=== PATIENT | male | born 1955 | race Caucasian/White ===

== ENCOUNTER 2016-07-03 14:58 | Emergency (ER) | payer OTHER ==
--- NOTE | 2016-07-03 17:39 | ED ---
Kee Helms Karl, scribed for Jos Salguero MD on 07/03/16 at 1713 . Complex/Multi-Sys Presentation - HPI Summary HPI Summary: 61 y/o M CORY presents w/ c/o a positive TB test. Pt reported no cough, night sweats, fever, or chills. Pt has been TB positive since 1969. - History Of Current Complaint Chief Complaint: EDGeneral Time Seen by Provider: 07/03/16 17:00 Hx Obtained From: Patient Onset/Duration: Gradual Onset, Still Present Timing: Constant Severity Currently: None Associated Signs And Symptoms: Negative: Cough, Fever, Diaphoresis - Allergies/Home Medications Allergies/Adverse Reactions: Allergies Allergy/AdvReac Type Severity Reaction Status Date / Time No Known Allergies Allergy Verified 02/25/13 18:07 PMH/Surg Hx/FS Hx/Imm Hx Psychiatric History: Reports: Hx of Violent Episodes Against Others Denies: Hx Eating Disorder Infectious Disease History: No Infectious Disease History: Denies: Traveled Outside the [place] in Last 30 Days - Family History Known Family History: Positive: Unknown - pt was adopted Family History: Pt was adopted - Social History Alcohol Use: Daily Substance Use Type: Reports: Heroin, Marijuana Smoking Status (MU): Heavy Every Day Tobacco Smoker Review of Systems Negative: Fever, Chills, Skin Diaphoresis Eyes: Negative ENT: Negative Cardiovascular: Negative Negative: Cough Gastrointestinal: Negative Genitourinary: Negative Musculoskeletal: Negative Skin: Negative Neurological: Negative Psychological: Normal All Other Systems Reviewed And Are Negative: Yes Physical Exam - Summary Physical Exam Summary: VITAL SIGNS: Reviewed. GENERAL: Patient is a well developed and nourished male who is lying comfortable in the stretcher. Patient is not in any acute respiratory distress. HEAD AND FACE: No signs of trauma. No ecchymosis, hematomas or skull depressions. No sinus tenderness. EYES: PERRLA, EOMI x 2, No injected conjunctiva, no nystagmus. EARS: Hearing grossly intact. Ear canals and tympanic membranes are within normal limits. MOUTH: Oropharynx within normal limits. NECK: Supple, trachea is midline, no adenopathy, no JVD, no carotid bruit, no c- spine tenderness, neck with full ROM. CHEST: Symmetric, no tenderness at palpation LUNGS: Clear to auscultation bilaterally. No wheezing or crackles. CVS: Regular rate and rhythm, S1 and S2 present, no murmurs or gallops appreciated. ABDOMEN: Soft, non-tender. No signs of distention. No rebound no guarding, and no masses palpated. Bowel sounds are normal. EXTREMITIES: FROM in all major joints, no edema, no cyanosis or clubbing. NEURO: Alert and oriented x 3. No acute neurological deficits. Speech is normal and follows commands. SKIN: Dry and warm Triage Information Reviewed: Yes Vital Signs On Initial Exam: Initial Vitals Temp Pulse Resp BP Pulse Ox 99.3 F 75 17 139/86 99 07/03/16 15:02 07/03/16 15:02 07/03/16 15:02 07/03/16 15:02 07/03/16 15:02 Vital Signs Reviewed: Yes Diagnostics - Vital Signs Vital Signs Temp Pulse Resp BP Pulse Ox 07/03/16 16:04 97.4 F 72 17 120/73 98 07/03/16 15:02 99.3 F 75 17 139/86 99 - Laboratory Lab Statement: Any lab studies that have been ordered have been reviewed, and results considered in the medical decision making process. - Radiology CXR Xray Interpretation: No Acute Changes Radiology Interpretation Completed By: ED Physician Complex Multi-Symp Course/Dx Assessment/Plan: 61 y/o M BIBA presents w/ c/o a positive TB test. Pt reported no cough, night sweats, fever, or chills. Pt has been TB positive since 1969. Patient reports that he has had a positive Interferon-gamma release assays ( IGRAs) in the past. Patient also reports that he had a positive ppd test in 1969 when he was incarcerated. He reports an intentional weight loss, but denies any productive cough with tinge blood sputum, denies any night sweats and has no other complaints. CXR: No acute cardiopulmonary pathology. Since patient has Hx of positive PPD and IGRA with a negative CXR he will be discharged home with f/u of PMD. Patient reports he has never been treated with INH therefore, he was highly recommended to discussed the benefits and risk of taking INH with is PCP. I discussed all the findings and test results with the patient. Patient was instructed to return to the emergency room immediately if he develops any productive cough with blood, fever or night sweats. Plan of care was discussed with the patient and understands and agrees. All questions were answered at patient satisfaction. There were no further complaints or concerns. P/E: Lungs: CTA B/L. Good air exchange. No wheezing or crackles heard. CVS: S1 and S2 present. No murmurs appreciated. Patient is alert and oriented x 3. Patient is hemodynamically stable. Patient will be discharged home with follow up PMD in the next 2-3 days - Diagnoses Differential Diagnoses/HQI/PQRI: Other - TB, PNA Provider Diagnoses: False positive interferon-gamma release assay (IGRA) for tuberculosis Discharge - Discharge Plan Condition: Stable Disposition: HOME The documentation as recorded by the Kee lund Karl accurately reflects the service I personally performed and the decisions made by Jose M guan Walter, MD.
[2016-07-03 18:04] VITALS: BP 104/75
--- NOTE | 2016-07-03 18:20 | RAD ---
INDICATION: +PPD COMPARISON: None TECHNIQUE: PA and lateral views of the chest were obtained. FINDINGS: The heart and mediastinum are normal in size and contour. The lungs are grossly clear. There is no evidence of large pleural effusion. Degenerative changes of the thoracic spine include loss of intervertebral disc height and anterior marginal osteophyte formation. There is no radiographic evidence of free air beneath the diaphragm IMPRESSION: No radiographic evidence of acute cardiopulmonary disease.
== END 2016-07-03 18:02 | disposition home or self-care (01) ==
LOC: ED 14:58
DX: R76.11 Nonspecific reaction to tuberculin skin test without active tuberculosis (principal)
CPT/HCPCS: 71020; 99282

== ENCOUNTER 2016-07-13 11:06 | Emergency (ER) | payer OTHER ==
[2016-07-13] MEDS ORDERED: Ondansetron INJ* 2 MG/ML VIAL IV ONE (11:50)
[2016-07-13] MEDS ORDERED: NS 0.9% 1000 ML* 1,000 ML IV ONE (11:50)
[2016-07-13] MEDS ORDERED: Morphine INJ* 4 MG/ML 1 ML SYRINGE IV ONE (11:50)
[2016-07-13 12:30] LABS: Hematocrit 46 % (42-52); Hemoglobin 15.4 g/dl (14.0-18.0); Mean Corpuscular HGB Conc 33 g/dl (31-36); Mean Corpuscular Hemoglobin 33 pg (27-31); Mean Corpuscular Volume 98 fL (80-94); Mean Platelet Volume 11 um3 (7.4-10.4); Red Blood Count 4.72 10^6/ul (4.0-5.4); Red Cell Distribution Width 14 % (10.5-15); White Blood Count 10.5 10^3/ul (3.5-10.8)
[2016-07-13 12:53] LABS: ALT 101 U/L (7-52); Albumin 3.7 g/dL (3.2-5.2); Alkaline Phosphatase 44 U/L (34-104); Blood Urea Nitrogen 20 mg/dL (6-24); C Reactive Protein 5.28 mg/L (< 5.00); CO2 Carbon Dioxide 25 mmol/L (22-32); Calcium 9.5 mg/dL (8.6-10.3); Chloride 103 mmol/L (101-111); EGFR African American 126.8 (>60); EGFR Non-African American 98.6 (>60); Globulin 3.5 g/dL (2-4); Glucose 124 mg/dL (70-100); Lipase 32 U/L (11.0-82.0); Magnesium 1.7 mg/dL (1.9-2.7); Sodium 138 mmol/L (133-145); Total Protein 7.2 g/dL (6.4-8.9)
[2016-07-13 13:05] LABS: Urine Bacteria Absent (Absent); Urine Bilirubin Negative (Negative); Urine Glucose Negative (Negative); Urine Nitrite Negative (Negative)
[2016-07-13] MEDS ORDERED: Magnesium Sulfate 2 GM IV* 2 GM/50 ML BAG IVPB ONE (14:05)
[2016-07-13] MEDS ORDERED: Azithromycin TAB* 250 MG PO ONE (15:29)
[2016-07-13] MEDS ORDERED: Magnesium Oxide TAB* 400 MG PO ONE (15:38)
[2016-07-13 16:03] LABS: Call Hep C TO BE CALLED
[2016-07-13 16:09] VITALS: BP 112/68
--- NOTE | 2016-07-15 08:32 | PN ---
Progress Note - Progress Note Note: Patient is a resident at [facility]. The medical staff was notified of his positive Hep C result, and said they were aware of his status. No further action needed.
--- NOTE | 2016-07-17 08:16 | PN ---
Progress Note - Progress Note Note: Stool culture is negative for any organisms. Positive for occult blood but H/H was normal. Patient is following up with primary.
--- NOTE | 2016-08-09 11:01 | ED ---
Carlton Helms Adam, scribed for Maria E Mccoy MD on 07/13/16 at 1142 . GI/ HPI - HPI Summary HPI Summary: Pt is a 61 year old male presenting with N/V/D and abdominal pain. He states that he has been having "watery" diarrhea 6-8 times a day for the past 2 weeks. He denies any blood or black tarry stools. He also c/o abdominal cramping, heartburn, and some difficulty urinating. 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 He states that he was undergoing a standard eye test; he didn't have any drops put in and he doesn't think anything in particular triggered the emesis. Pt denies any recent abx, camping, or bad food. He has been taking Pepto-Bismol. Pt has been at [facility] for [facility] re[facility] for 5 weeks. He states that he was a "heavy" drinker. He smokes tobacco currently and is a former drug user. Pt denies any other known PMHx. FMHx unknown because pt was adopted. - History of Current Complaint Chief Complaint: EDAbdPain Stated Complaint: NAUSEA/VOMITTING Hx Obtained From: Patient Onset/Duration: Started Weeks Ago, Atraumatic, Still Present Timing: Constant, Lasting Weeks Severity: Moderate Current Severity: Moderate Pain Intensity: 6 Location of Pain: Diffuse Pain Characteristics: Cramping Associated Signs and Symptoms: Positive: Vomiting, Diarrhea, Dysuria, Abdominal Pain, Other: - Heartburn. Negative: Black Tarry Stool, Blood w/Stool Aggravating Factor(s): Nothing Alleviating Factor(s): Nothing - Allergy/Home Medications Allergies/Adverse Reactions: Allergies Allergy/AdvReac Type Severity Reaction Status Date / Time No Known Allergies Allergy Verified 02/25/13 18:07 PMH/Surg Hx/FS Hx/Imm Hx Respiratory History: Reports: Other Respiratory Problems/Disorders - POSSATIVE PPD SINCE 1982 Psychiatric History: Reports: Hx of Violent Episodes Against Others Denies: Hx Eating Disorder Infectious Disease History: Yes Infectious Disease History: Denies: Traveled Outside the [place] in Last 30 Days - Family History Known Family History: Positive: Unknown Family History: Pt was adopted - Social History Occupation: Unemployed Lives: Nursing Home - [facility] Alcohol Use: None Alcohol Amount: 5 weeks sober, resident of [facility] Hx Substance Use: Yes Substance Use Type: Reports: Marijuana Substance Use Comment - Amount & Last Used: resident [facility] Hx Tobacco Use: Yes Smoking Status (MU): Heavy Every Day Tobacco Smoker Review of Systems Negative: Fever Positive: Abdominal Pain, Vomiting, Diarrhea, Other - Heartburn Positive: dysuria All Other Systems Reviewed And Are Negative: Yes Physical Exam Triage Information Reviewed: Yes Vital Signs On Initial Exam: Initial Vitals Temp Pulse Resp BP Pulse Ox 98.7 F 71 18 121/73 94 07/13/16 11:18 07/13/16 11:18 07/13/16 11:18 07/13/16 11:18 07/13/16 11:18 Vital Signs Reviewed: Yes Appearance: Positive: Well-Appearing, No Pain Distress Skin: Positive: Warm, Skin Color Reflects Adequate Perfusion, Dry Eyes: Positive: EOMI, [place] ENT: Positive: Pharynx normal, TMs normal Neck: Positive: Supple, Nontender Respiratory/Lung Sounds: Positive: Clear to Auscultation, Breath Sounds Present. Negative: Rales, Rhonchi, Wheezes Cardiovascular: Positive: RRR. Negative: Murmur, Rub Abdomen Description: Positive: Nontender, Soft. Negative: Distended, Guarding Bowel Sounds: Positive: Present Musculoskeletal: Positive: Strength/ROM Intact. Negative: Edema Left, Edema Right Neurological: Positive: Sensory/Motor Intact, Alert, Oriented to Person Place, Time, CN Intact II-III Psychiatric: Positive: Affect/Mood Appropriate - Venkat Coma Scale Coma Scale Total: 15 Diagnostics - Vital Signs Vital Signs Temp Pulse Resp BP Pulse Ox 07/13/16 11:18 98.7 F 71 18 121/73 94 - Laboratory Result Diagrams: 07/13/16 12:15 07/13/16 14:04 Lab Statement: Any lab studies that have been ordered have been reviewed, and results considered in the medical decision making process. - EKG 11:47 Cardiac Rate: NL - 68 BPM EKG Rhythm: Sinus Rhythm - Normal EKG Interpretation: NSR with J point elevation. EKG Comparison: Other - No prior EKG's to compare GIGU Course/Dx - Diagnoses Provider Diagnoses: Dysentery Discharge - Discharge Plan Condition: Stable Disposition: HOME Patient Education Materials: Acute Diarrhea (ED) Referrals: Yoli Cruz MD [Primary Care Provider] - Additional Instructions: Follow up with Dr. Cruz in 2 days. The documentation as recorded by the irmaibCarlton davies Adam accurately reflects the service I personally performed and the decisions made by me, Maria E Mccoy MD.
== END 2016-07-13 16:44 | disposition home or self-care (01) ==
LOC: ED 11:06
DX: A09 Infectious gastroenteritis and colitis, unspecified (principal); R11.2 Nausea with vomiting, unspecified; R19.7 Diarrhea, unspecified; R10.9 Unspecified abdominal pain; R30.0 Dysuria; F17.210 Nicotine dependence, cigarettes, uncomplicated
CPT/HCPCS: 36415; 80053; 81003; 81015; 82272; 83605; 83630; 83690; 83735; 85025; 86140; 86803; 87045; 87046; 87493; 87899; 93005; 96374; 96375; 99282; A9270-GY; J2270; J2405